=== PATIENT | female | born 1985 | race Caucasian/White ===

== ENCOUNTER 2016-07-10 06:33 | Day surgery (SDC) | payer OTHER ==
[2016-07-09 11:41] LABS: CHLORIDE,CL 107 mmol/L (98-110); SODIUM,NA 140 mmol/L (136-146)
[~2016-07-10 06:33] MED LIST: Bupivacaine 0.25% 10 ML SDV ONE
--- NOTE | 2016-07-10 07:01 | PCM.PREANE ---
Preanesthetic Assessment - Anesthesia/Transfusion/Family Hx Anesthesia History: Prior Anesthesia Without Reaction Family History of Anesthesia Reaction: No Transfusion History: No Prior Transfusion(s) Intubation History: Unknown - Review of Systems General: No Symptoms Pulmonary: No Symptoms Cardiovascular: No Symptoms Gastrointestinal: No symptoms Neurological: No Symptoms Other: Reports: None - Physical Assessment O2 Sat by Pulse Oximetry: 10 Respiratory Rate: 16 Vital Signs: Last Vital Signs Temp 36.3 C 07/10/16 06:43 Pulse 63 07/10/16 06:43 Resp 16 07/10/16 06:43 BP 106/76 07/10/16 06:43 Pulse Ox 10 L 07/10/16 06:43 Height: 1.57 m Weight: 72.575 kg ASA Class: 2 Mental Status: Alert & Oriented x3 Airway Class: Mallampati = 2 Thyro-Mental Finger Breadths: 3 Mouth Opening Finger Breadths: 2 ROM/Head Extension: Full Lungs: Clear to auscultation, Normal respiratory effort Cardiovascular: Regular Rate, Regular Rhythm - Lab Values: Laboratory Last Values WBC 4.40 K/uL (4.0-11.0) 07/09/16 11:12 RBC 4.45 M/uL (4.30-5.90) 07/09/16 11:12 Hgb 13.4 g/dL (12.0-16.0) 07/09/16 11:12 Hct 39.3 % (36.0-46.0) 07/09/16 11:12 MCV 88.3 fL (80.0-98.0) 07/09/16 11:12 MCH 30.1 pg (27.0-32.0) 07/09/16 11:12 MCHC 34.1 g/dL (31.0-37.0) 07/09/16 11:12 RDW Std Deviation 42.2 fl (28.0-62.0) 07/09/16 11:12 RDW Coeff of [place]el[place] 13 % (11.0-15.0) 07/09/16 11:12 Plt Count 164 K/uL (150-400) 07/09/16 11:12 MPV 9.90 fL (7.40-12.00) 07/09/16 11:12 Nucleated RBC % 0.0 /100WBC 07/09/16 11:12 Nucleated RBCs # 0 K/uL 07/09/16 11:12 Sodium 140 mmol/L (136-146) 07/09/16 11:12 Potassium 4.2 mmol/L (3.5-5.1) 07/09/16 11:12 Chloride 107 mmol/L (98-110) 07/09/16 11:12 Carbon Dioxide 25 mmol/L (21-31) 07/09/16 11:12 BUN 13 mg/dL (6.0-23.0) 07/09/16 11:12 Creatinine 0.9 mg/dL (0.6-1.5) 07/09/16 11:12 Est Cr Clr Drug Dosing 70.98 mL/min 07/09/16 11:12 Estimated GFR (MDRD) > 60.0 ml/min 07/09/16 11:12 Glucose 70 mg/dL (60-110) 07/09/16 11:12 Calcium 9.3 mg/dL (8.8-10.8) 07/09/16 11:12 HCG, Qual NEGATIVE (NEG) 07/09/16 11:12 Blood Type A POSITIVE 07/09/16 11:12 Antibody Screen NEGATIVE 07/09/16 11:12 - Allergies Allergies/Adverse Reactions: Allergies Allergy/AdvReac Type Severity Reaction Status Date / Time hydrocodone bitartrate Allergy "anger Verified 01/15/16 10:52 [From Vicodin] rages" latex Allergy welts/reddn Verified 07/06/16 08:54 ess - Blood Blood Available: No - Anesthesia Plan Pre-Op Medication Ordered: None - Acknowledgements Anesthesia Type Planned: General Anesthesia Pt an Appropriate Candidate for the Planned Anesthesia: Yes Alternatives and Risks of Anesthesia Discussed w Pt/Guardian: Yes Pt/Guardian Understands and Agrees with Anesthesia Plan: Yes PreAnesthesia Questionnaire HEENT History: Reports: Other (See Below) Other HEENT History: wears contacts/glasses Respiratory History: Reports: Other (See Below) Other Respiratory History: hx of walking pneumonia last year 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: , Other (See Below) Other OB/BYN History: ablation Endocrine/Metabolic History: Reports: Obesity/BMI 30+ Hematologic History: Reports: Other (See Below) Other Hematologic History: states she bleeds easily - Past Surgical History Head Surgeries/Procedures: Reports: None Respiratory Surgical History: Reports: None Female Surgical History: Reports: Breast Implant, Endometrial Ablation, Salpingo-Oophorectomy Other Female Surgeries/Procedures: hx breast augmentation, ESSURE, operative laparoscopy with rt salpingectomy, endometrial ablation - SUBSTANCE USE Smoking Status *Q: Never Smoker Second Hand Smoke Exposure: No Days Per Week of Alcohol Use: 6 Number of Drinks Per Day: 1 Total Drinks Per Week: 6 Recreational Drug Use History: No - HOME MEDS Home Medications: Home Meds . [No Known Home Meds] 01/15/16 [History] - CURRENT (IN HOUSE) MEDS Current Meds: Current Medications Discontinued Medications Bupivacaine HCl (Sensorcaine-Mpf 0.25%) Confirm Administered Dose 20 ml .ROUTE .STK-MED ONE Stop: 07/07/16 14:27
[2016-07-10] MEDS ORDERED: Neostigmine Methylsulfate 1 MG/ML 5 ML Syringe ONE (07:04)
[2016-07-10] MEDS ORDERED: Sodium Chloride 0.9% 20 ML ONE ×2 (07:04→08:06)
[2016-07-10] MEDS ORDERED: Ondansetron 4 MG/2 ML SDV ONE (07:04)
[2016-07-10] MEDS ORDERED: Lidocaine 2% 5 ML SDV ONE (07:04)
[2016-07-10] MEDS ORDERED: fentaNYL 250 MCG/5 ML SDV ONE ×2 (07:05→08:35)
[2016-07-10] MEDS ORDERED: Propofol 200 MG/20 ML SDV ONE ×2 (07:05→11:02)
[2016-07-10] MEDS ORDERED: Midazolam 1 MG/ML 2 ML SDV ONE (07:05)
[2016-07-10] MEDS ORDERED: Fluorescein 5 ML Vial ONE (07:18)
[2016-07-10] MEDS ORDERED: Methylene Blue 50 MG/10 ML Ampule IV ONE (07:19)
[2016-07-10] MEDS ORDERED: Phenylephrine/Normal Saline 100 MCG/ML 10 ML Syringe ONE (08:00)
[2016-07-10] MEDS ORDERED: ePHEDrine 50 MG/ML SDV ONE (08:03)
[2016-07-10] MEDS ORDERED: ceFAZolin 1 GM Vial ONE (08:06)
[2016-07-10] MEDS ORDERED: Furosemide 40 MG/4 ML VIAL ONE (08:12)
[2016-07-10] MEDS ORDERED: Sodium Chloride 0.9% 2.5 ML Syringe FLUSH PRN (08:44)
[2016-07-10] MEDS ORDERED: Sodium Chloride 0.9% 10 ML Syringe FLUSH PRN (08:44)
[2016-07-10] MEDS ORDERED: Lactated Ringers 1,000 ML IV SCH (08:45)
[2016-07-10] MEDS ORDERED: fentaNYL 100 MCG/2 ML SDV IVPUSH PRN ×2 (08:46→10:18)
[2016-07-10] MEDS ORDERED: Ondansetron 4 MG/2 ML SDV IVPUSH PRN (10:18)
[2016-07-10] MEDS ORDERED: Promethazine 25 MG/ML SDV IM PRN (10:18)
--- NOTE | 2016-07-10 10:18 | PCM.OPNOTE ---
- General Post-Op/Procedure Note Date of Surgery/Procedure: 07/10/16 Operative Procedure(s): laparoscopically assisted vaginal hysterectomy with right salpingectomy Findings: uterus normal size, dark implant on right side of uterus at fundus, no other areas suspicious for endometriosis. Bilateral ovaries appear normal. Upon cystoscopy, there was copious flow of bright green urine from bilateral ureteral orifices and no evidence of trauma to the bladder mucosa. Pre Op Diagnosis: menorrhagia Post-Op Diagnosis: Same Anesthesia Technique: General ET tube Primary Surgeon: Krupa Toribio Secondary Surgeon: Meenu Garcia Anesthesia Provider: Betito Lee Independent Crop Consultant: Donnell Freitas Pathology: uterus, left tube Fluid Replacement, Intraop: 3,000 Output, Urine Amount: 800 EBL in mLs: 300 Complications: None Known Condition: Good
--- NOTE | 2016-07-10 10:56 | PCM.POSTAN ---
POST ANESTHESIA ASSESSMENT - MENTAL STATUS Mental Status: alert, oriented - RESPIRATORY Respiratory Status: respiratory rate WNL, airway patent, O2 saturation stable - CARDIOVASCULAR CV Status: pulse rate WNL, blood pressure stable - GASTROINTESTINAL GI Status: no symptoms - PAIN Pain Score: 2 - POST OP HYDRATION Hydration Status: adequate & stable - OBSERVATIONS Free Text/Narrative:: no anesthesia problems
[2016-07-10] MEDS: Acetaminophen/oxyCODONE 325-5 MG Tab PO PRN ×3 (13:31→23:19)
--- NOTE | 2016-07-10 14:44 | OR ---
SURGEON: Krupa Toribio M.D. DATE OF PROCEDURE: 07/10/2016 PREOPERATIVE DIAGNOSES: Menorrhagia and pelvic pain. POSTOPERATIVE DIAGNOSES: Menorrhagia and pelvic pain. PROCEDURE: Laparoscopically-assisted vaginal hysterectomy with left salpingectomy. LUMBER PILER: Meenu Garcia MD. ANESTHESIA: General endotracheal. FLUIDS: 3000 mL crystalloid. URINE OUTPUT: 800 mL. ESTIMATED BLOOD LOSS: 300 mL. FINDINGS: The uterus had a dark implant at the right fundal area which appeared consistent with endometriosis, there were no other areas of endometriosis identified, however bilateral ovaries appeared normal. The left tube appeared normal. Upon cystoscopy, there was copious flow of bright green dye after fluorescein had been given from bilateral ureteral orifices. There was also no evidence of any trauma to the bladder mucosa. COMPLICATIONS: None known. DISPOSITION: Stable to recovery. BRIEF HISTORY: This is a 30-year-old female, who presents for hysterectomy. She has had heavy irregular bleeding as well as right-sided pelvic pain. She has had an ablation and Essure procedure in 2012. Her periods were very light. The dyspareunia and pelvic pain which she had noted prior to the ablation was much improved until November of 2015 which was the 1st time she noticed a normal-appearing. Following that, her periods were every 21 days until February when she had three periods and then had bleeding the entire month of March. Since then, her periods have become very heavy and irregular with associated pelvic pain and cramping. The pelvic pain that she has noticed is in the right lower quadrant. This is the same pain that she has experienced prior to her ablation. Prior to the ablation in 2012, she did have a right salpingectomy with removal of the Essure implant to see if this was the cause of the pain. This did not resolve her pain. However, the ablation and resolution of her periods did resolve her pain. Therefore, she was evaluated with an ultrasound which was normal without lesions or polyps and she also had laboratory studies including a normal TSH, normal Pap smear. Vitamin B12 level was relatively low, and she has been receiving B12 supplements. Discussion of options included IUD, repeat ablation, medical management, or hysterectomy given the fact that she has had recurrence of the right lower quadrant pain despite removal of the tube, removal of the Essure, and when her periods resume, she had recurrence of the pain. She desires to proceed with definitive treatment with hysterectomy. The approach will be a laparoscopically-assisted vaginal hysterectomy with left salpingectomy and cystoscopy, removal of her remaining tube is for risk reduction for ovarian cancer as well as removal of the Essure implant. Surgical risks including bleeding, infection, injury to bowel, bladder, blood vessels, ureters, other organs, risk of thromboembolic event, risk of anesthesia were discussed. Also discussion was held regarding change in sexual function. Understanding all these risks, she does desire to proceed. DESCRIPTION OF PROCEDURE: With the patient in dorsal lithotomy position, under adequate general endotracheal anesthesia, the abdomen was prepped with chlorhexidine and the vaginal and perineal areas were prepped with Betadine and draped in the usual fashion for laparoscopically-assisted vaginal surgery. Gallegos catheter had been placed and backfilled with 30 mL of dilute methylene blue. An appropriate time- out was held and bimanual examination revealed an 8 weeks' size mobile uterus in mid position. The speculum was placed in the vagina. The cervix was grasped with an Allis clamp and the ZUMI uterine manipulator was placed to the uterine fundus, it was sounded to 7 cm. This being completed, the speculum was removed. Paste Mixer's gloves were changed. Attention was turned abdominally. A 5 mm incision was made cephalad from the umbilicus at the prior scar site and the abdomen was elevated. Veress needle was inserted. Opening pressure was 4 mmHg. CO2 was insufflated to develop an adequate pneumoperitoneum of 13 mmHg. The 5 mm port was placed. The camera was placed. There was no evidence of any trauma beneath the port placement site. The uterus was elevated, bilateral ureters were identified and were deep within the pelvis. Two additional ports were placed under direct visualization, 2 cm medial and cephalad from the anterior superior iliac spine on the right and the left. These were 5 mm ports as well. The uterus was elevated. The left tube was grasped and using the LigaSure, was from the ovary and the mesosalpinx was cut and cauterized approximately to the level of the uterine cornu with retraction of the uterus to the right. The left broad ligament was then further cut and ligated below the level of the round ligament. The anterior leaf of the broad ligament was then further opened as was the posterior leaf and the LigaSure was used to doubly cauterize and cut the uterine vessels. Due to the position of the uterus, it was difficult to see the anterior cul-de-sac, therefore I did not proceed with entering the anterior cul-de-sac from above. I did proceed with doubly clamping and doubly ligating and cutting the utero-ovarian ligament on the right carrying down to the round ligament opening the anterior and posterior leaf of the broad ligament and doubly cauterizing and cutting the uterine vessels. This being completed, attention was then turned vaginally. The Gallegos catheter was released. A weighted speculum was placed posteriorly and a vaginal retractor was placed anteriorly. The cervix was grasped with a Vilma tenaculum and circumscribed using electrocautery. The posterior cul-de-sac was entered sharply. A Ondina-Auvard speculum was placed posteriorly. The anterior cul-de- sac was entered sharply using Metzenbaum scissors and the vaginal retractor was placed anteriorly. The uterosacral ligaments were then clamped with a Higinio clamps, cut, and ligated using a Higinio ligature of 0 Polysorb. These were retained. An additional pedicle was taken on the right for the lower portion of the broad ligament which was then clamped, cut, and ligated using a Higinio ligature of 2-0 Polysorb. The uterus and the portion of the left tube was then delivered vaginally. The pedicles were inspected and they were hemostatic. The retained uterosacral ligatures were ligated to the vaginal apices bilaterally and the vaginal cuff was closed with a running locked suture of 0 Polysorb. The Gallegos catheter was removed. IV fluorescein and Lasix were given. There was copious flow of bright green urine upon cystoscopy with excellent visualization of the bladder. There was no evidence of any trauma to the bladder mucosa. Therefore, a new Gallegos catheter was placed. The speculum was again placed in the vagina and the cuff was hemostatic. Attention was then turned abdominally. The abdomen was re-insufflated after threshing operator's gloves were changed. The pelvis was carefully inspected. Initially, there were some small areas of bleeding that were cauterized, however after and during the inspection, there was a sudden onset of bleeding immediately at the anterior cuff and this was cauterized, however, I was unable to get complete hemostasis. Therefore, I returned to a vaginal approach to grasp the anterior cuff with an Allis clamp and placed a single [id number] suture in the tissue with good hemostasis. Careful inspection at 5 mmHg revealed several other areas of small amount of bleeding that were cauterized. Endo Avitene was then placed at the anterior cuff area. With the cuff and the pelvis being completely hemostatic, inspection under high and low pressure was performed. There was no further bleeding and therefore, the abdomen was desufflated. The ports were removed. The skin was closed with subcuticular suture of 3-0 Caprosyn and the vagina was again inspected and there was no evidence of any bleeding from the vaginal cuff. Therefore, all the instruments removed from the vagina. Final sponge, needle, and instrument counts were reported as correct. There were no known complications. The patient was transferred to recovery in good condition. VIDHYA / MIKE /[id number]
--- NOTE | 2016-07-10 17:45 | PCM.SN ---
- Free Text/Narrative Note: POD0 after LAVH with left salpingectomy. Nausea is resolved after Zofran and phenergan, taking oral pain pills and tolerating diet. Catheter still in place. Reviewed operative findings, Catheter out tonight and anticipate home in am. Would like B12 injection (home med) prior to discharge.
[2016-07-11 04:41] LABS: CHLORIDE,CL 108 mmol/L (98-110); SODIUM,NA 140 mmol/L (136-146)
[2016-07-11] MEDS: Acetaminophen/oxyCODONE 325-5 MG Tab PO PRN (06:50)
[2016-07-11] MEDS ORDERED: Cyanocobalamin (Vitamin B12) 1,000 MCG/ML SDV IM ONE (07:00)
[2016-07-11 08:04] VITALS: BP 104/63
--- NOTE | 2016-07-11 08:16 | PCM.SURGPN ---
- General Info Date of Service: 07/11/16 POD#: 1 Post-Op Diagnosis: menorrhgia, pelvic pain, possible endometriosis Admission Diagnosis/Problem: Menorrhagia with irregular cycle Functional Status: Reports: pain controlled, tolerating diet, ambulating, urinating - Review of Systems General: Reports: No Symptoms HEENT: Reports: no symptoms Pulmonary: Reports: no symptoms Cardiovascular: Reports: No Symptoms Gastrointestinal: Reports: No symptoms Genitourinary: Reports: no symptoms Musculoskeletal: Reports: no symptoms Skin: Reports: no symptoms Neurological: Reports: No Symptoms Psychiatric: Reports: no symptoms - Patient Data Vitals - most recent: Last Vital Signs Temp 36.7 C 07/11/16 04:00 Pulse 81 07/11/16 04:00 Resp 14 07/11/16 04:00 BP 89/55 L 07/11/16 04:00 Pulse Ox 94 L 07/11/16 04:00 Weight - most recent: 72.575 kg I&O - last 24 hours: Intake & Output 07/10/16 07/11/16 07/11/16 22:59 06:59 14:59 Intake Total 1250 Output Total 3350 Balance -2100 Lab Results last 24 hrs: Laboratory Results - last 24 hr 07/11/16 07/11/16 Range/Units 04:11 04:11 WBC 6.81 (4.0-11.0) K/uL RBC 3.64 L (4.30-5.90) M/uL Hgb 10.7 L (12.0-16.0) g/dL Hct 32.9 L (36.0-46.0) % MCV 90.4 (80.0-98.0) fL MCH 29.4 (27.0-32.0) pg MCHC 32.5 (31.0-37.0) g/dL RDW Std Deviation 44.8 (28.0-62.0) fl RDW Coeff of Carmelita 14 (11.0-15.0) % Plt Count 135 L (150-400) K/uL MPV 9.70 (7.40-12.00) fL Neut % (Auto) 61.3 (48.0-80.0) % Lymph % (Auto) 30.0 (16.0-40.0) % [place] % (Auto) 6.5 (0.0-15.0) % Eos % (Auto) 2.2 (0.0-7.0) % Baso % (Auto) 0.0 (0.0-1.5) % Neut # (Auto) 4.2 (1.4-5.7) K/uL Lymph # (Auto) 2.0 (0.6-2.4) K/uL [place] # (Auto) 0.4 (0.0-0.8) K/uL Eos # (Auto) 0.2 (0.0-0.7) K/uL Baso # (Auto) 0.0 (0.0-0.1) K/uL Nucleated RBC % 0.0 /100WBC Nucleated RBCs # 0 K/uL Sodium 140 (136-146) mmol/L Potassium 3.8 (3.5-5.1) mmol/L Chloride 108 (98-110) mmol/L Carbon Dioxide 25 (21-31) mmol/L BUN 6 (6.0-23.0) mg/dL Creatinine 0.8 (0.6-1.5) mg/dL Est Cr Clr Drug Dosing 79.85 mL/min Estimated GFR (MDRD) > 60.0 ml/min Glucose 93 (60-110) mg/dL Calcium 8.2 L (8.8-10.8) mg/dL Med Orders - Current: Current Medications Ondansetron HCl (Zofran) 4 mg IVPUSH Q6H PRN PRN Reason: Nausea/Vomiting Last Admin: 07/10/16 13:32 Dose: 4 mg Oxycodone/Acetaminophen (Percocet 325-5 Mg) 1 - 2 tab PO Q4H PRN PRN Reason: Pain (moderate 4-6) Last Admin: 07/11/16 06:50 Dose: 2 tab Promethazine HCl (Phenergan) 25 mg IM Q6H PRN PRN Reason: Nausea/Vomiting Last Admin: 07/10/16 14:34 Dose: 25 mg Sodium Chloride (Saline Flush) 10 ml FLUSH ASDIRECTED PRN PRN Reason: Keep Vein Open Sodium Chloride (Saline Flush) 2.5 ml FLUSH ASDIRECTED PRN PRN Reason: Keep Vein Open Discontinued Medications Bupivacaine HCl (Sensorcaine-Mpf 0.25%) Confirm Administered Dose 20 ml .ROUTE .STK-MED ONE Stop: 07/07/16 14:27 Cefazolin Sodium (Ancef) Confirm Administered Dose 2 gm .ROUTE .STK-MED ONE Stop: 07/10/16 08:07 Cyanocobalamin (Vitamin B12) 1,000 mcg IM ONETIME ONE Stop: 07/11/16 07:01 Last Admin: 07/11/16 07:22 Dose: 1,000 mcg Ephedrine Sulfate (Ephedrine Sulfate) Confirm Administered Dose 50 mg .ROUTE .STK-MED ONE Stop: 07/10/16 08:04 Fentanyl (Sublimaze) Confirm Administered Dose 250 mcg .ROUTE .STK-MED ONE Stop: 07/10/16 07:06 Fentanyl (Sublimaze) Confirm Administered Dose 250 mcg .ROUTE .ST-MED ONE Stop: 07/10/16 08:36 Fentanyl (Sublimaze) 50 mcg IVPUSH Q5M PRN PRN Reason: Pain (severe 7-10) Stop: 07/10/16 12:00 Last Admin: 07/10/16 10:57 Dose: 50 mcg Fentanyl (Sublimaze) 10 - 20 mcg IVPUSH Q1H PRN PRN Reason: Pain Stop: 07/10/16 17:19 Fluorescein Sodium (Ak-Fluor) Confirm Administered Dose 5 ml .ROUTE .ST-MED ONE Stop: 07/10/16 07:19 Furosemide (Lasix) Confirm Administered Dose 40 mg .ROUTE .STK-MED ONE Stop: 07/10/16 08:13 Glycopyrrolate () Confirm Administered Dose 1 mg .ROUTE .STK-MED ONE Stop: 07/10/16 07:05 Sodium Chloride (Normal Saline) Confirm Administered Dose 20 mls @ as directed .ROUTE .STK-MED ONE Stop: 07/10/16 07:05 Sodium Chloride (Normal Saline) Confirm Administered Dose 20 mls @ as directed .ROUTE .STK-MED ONE Stop: 07/10/16 08:07 Lactated Ringer's (Ringers, Lactated) 1,000 mls @ 125 mls/hr IV ASDIRECTED KAYLA Lidocaine (Xylocaine-Mpf 2%) Confirm Administered Dose 5 ml .ROUTE .STK-MED ONE Stop: 07/10/16 07:05 Methylene Blue (Provayblue) Confirm Administered Dose 50 mg IV .STK-MED ONE Stop: 07/10/16 07:20 Midazolam HCl (Versed 1 Mg/Ml) Confirm Administered Dose 2 mg .ROUTE .STK-MED ONE Stop: 07/10/16 07:06 Neostigmine Methylsulfate (Neostigmine) Confirm Administered Dose 5 mg .ROUTE .STK-MED ONE Stop: 07/10/16 07:05 Ondansetron HCl (Zofran) Confirm Administered Dose 4 mg .ROUTE .STK-MED ONE Stop: 07/10/16 07:05 Phenylephrine HCl (Phenylephrine In Ns 100 Mcg/Ml) Confirm Administered Dose 1 mg .ROUTE .STK-MED ONE Stop: 07/10/16 08:01 Propofol (Diprivan 20 Ml) Confirm Administered Dose 200 mg .ROUTE .STK-MED ONE Stop: 07/10/16 07:06 Propofol (Diprivan 20 Ml) Confirm Administered Dose 200 mg .ROUTE .STK-MED ONE Stop: 07/10/16 11:03 Vecuronium [place] (Vecuronium) Confirm Administered Dose 10 mg .ROUTE .STK-MED ONE Stop: 07/10/16 07:05 - Exam Wound/Incisions: dressing dry and intact General: alert, oriented Lungs: Clear to auscultation, Normal respiratory effort Cardiovascular: Regular Rate, Regular Rhythm Abdomen: bowel sounds present, soft, no tenderness, no distension Extremities: no edema Skin: warm, dry, intact Neurological: no new focal deficit Psy/Mental Status: alert, normal affect, normal mood - Problem List & Annotations (1) Menorrhagia with irregular cycle SNOMED Code(s): 480619020 Code(s): N92.1 - EXCESSIVE AND FREQUENT MENSTRUATION WITH IRREGULAR CYCLE Status: Acute Current Visit: Yes (2) Pelvic pain SNOMED Code(s): 04260299 Code(s): R10.2 - PELVIC AND PERINEAL PAIN Status: Acute Current Visit: Yes - Problem List Review Problem List Initiated/Reviewed/Updated: Yes - My Orders Last 24 Hours: Active Orders 24 hr Category Date Time Status Patient Status [ADT] Routine ADT 07/10/16 10:18 Active Antiembolic Devices [RC] PER UNIT ROUTINE Care 07/10/16 10:19 Active Bradycardia-Neuroaxis [employer] [RC] ROUTINE Care 07/10/16 08:46 Active Hypertension-Neuroaxis [employer] [RC] ROUTINE Care 07/10/16 08:46 Active Hypotension-Neuroaxis [employer] [RC] ROUTINE Care 07/10/16 08:46 Active Notify Provider Intake and Out [RC] ASDIRECTED Care 07/10/16 10:18 Active Notify Provider Vital Signs [RC] ASDIRECTED Care 07/10/16 10:18 Active Oxygen Therapy [RC] ASDIRECTED Care 07/10/16 10:23 Active RT Incentive Spirometry [RC] Q2HWA Care 07/10/16 10:18 Active Ready for Discharge [RC] PER UNIT ROUTINE Care 07/11/16 08:00 Ordered Up With Assistance [RC] PER UNIT ROUTINE Care 07/10/16 10:18 Active Up ad Jaymie [RC] PER UNIT ROUTINE Care 07/10/16 10:18 Active Urinary Catheter Removal [RC] Per Unit Routine Care 07/10/16 10:18 Active Vital Signs [RC] PER UNIT ROUTINE Care 07/10/16 10:18 Active Regular Diet [DIET] Diet 07/10/16 Dinner Active Acetaminophen/oxyCODONE [Percocet 325-5 MG] Med 07/10/16 10:18 Active 1 - 2 tab PO Q4H PRN Ondansetron [Zofran] Med 07/10/16 10:18 Active 4 mg IVPUSH Q6H PRN Promethazine [Phenergan] Med 07/10/16 10:18 Active 25 mg IM Q6H PRN Sodium Chloride 0.9% [Saline Flush] Med 07/10/16 08:44 Active 10 ml FLUSH ASDIRECTED PRN Sodium Chloride 0.9% [Saline Flush] Med 07/10/16 08:44 Active 2.5 ml FLUSH ASDIRECTED PRN Heat Therapy [OM.PC] Routine Oth 07/10/16 10:18 Ordered Medication Administration Instruction [OM.PC] Routine Oth 07/10/16 08:44 Ordered Peripheral IV Discontinue [OM.PC] Routine Oth 07/10/16 10:18 Ordered Peripheral IV Insertion Adult [OM.PC] Routine Oth 07/10/16 08:44 Ordered Sequential Compression Device [OM.PC] Per Unit Routine Oth 07/10/16 10:18 Ordered Resuscitation Status Routine Resus Stat 07/10/16 10:18 Ordered Medication Orders Ondansetron HCl (Zofran) 4 mg IVPUSH Q6H PRN PRN Reason: Nausea/Vomiting Last Admin: 07/10/16 13:32 Dose: 4 mg Oxycodone/Acetaminophen (Percocet 325-5 Mg) 1 - 2 tab PO Q4H PRN PRN Reason: Pain (moderate 4-6) Last Admin: 07/11/16 06:50 Dose: 2 tab Admin: 07/10/16 23:19 Dose: 2 tab Admin: 07/10/16 18:35 Dose: 2 tab Admin: 07/10/16 13:31 Dose: 2 tab Promethazine HCl (Phenergan) 25 mg IM Q6H PRN PRN Reason: Nausea/Vomiting Last Admin: 07/10/16 14:34 Dose: 25 mg Sodium Chloride (Saline Flush) 10 ml FLUSH ASDIRECTED PRN PRN Reason: Keep Vein Open Sodium Chloride (Saline Flush) 2.5 ml FLUSH ASDIRECTED PRN PRN Reason: Keep Vein Open - Assessment Assessment (Free Text/Narrative):: POD#1 after LAVH/left salpingectomy. Patient is stable, pain is well controlled , nighttime BP was low when awakened, ambulating to bathroom only today. Tolerating diet, nausea is resolved - Plan Plan (Free Text/Narrative):: Repeat BP prior to discharge, ambulate this am, if no dizziness, will dismiss to home. Discharge instructions reviewed.
== END 2016-07-11 11:05 | disposition home or self-care (01) ==
LOC: MW.SDS 06:33 → MW.MS 11:24 → MW.SDS 07-11 11:05
PROVIDERS: ATTEND Obstetrics & Gynecology
PROC: 0UTC7ZZ Resection of Cervix, Via Natural or Artificial Opening (ICD-10-PCS; principal; 2016-07-10)
PROC: 0UT9FZZ Resection of Uterus, Via Natural or Artificial Opening With Percutaneous Endoscopic Assistance (ICD-10-PCS; principal; 2016-07-10)
PROC: 0UT6FZZ Resection of Left Fallopian Tube, Via Natural or Artificial Opening With Percutaneous Endoscopic Assistance (ICD-10-PCS; principal; 2016-07-10)
DX: N80.0 Endometriosis of uterus (principal); N88.8 Other specified noninflammatory disorders of cervix uteri; E66.9 Obesity, unspecified; Z90.79 Acquired absence of other genital organ(s); Z88.5 Allergy status to narcotic agent; Z88.6 Allergy status to analgesic agent; Z91.040 Latex allergy status; Z98.890 Other specified postprocedural states; Z68.30 Body mass index [BMI] 30.0-30.9, adult
CPT/HCPCS: 36415; 58552; 80048; 84703; 85025; 85027; 86850; 86900; 86901; A9270; J0690; J1940; J2250; J2405; J2550; J3010; J3420; Q9968; 00944; 88307; J2704

== ENCOUNTER 2017-01-23 19:12 | Emergency (ER) | payer OTHER ==
[2017-01-23] MEDS ORDERED: Lidocaine 1% 20 ML MDV INJECT ONE (19:38)
[2017-01-23] MEDS ORDERED: Acetaminophen/HYDROcodone 325-5 MG Tab PO ONE (19:50)
--- NOTE | 2017-01-23 19:53 | EDM.PDOC ---
ED HPI GENERAL MEDICAL PROBLEM - General Chief Complaint: Skin Complaint Stated Complaint: UNK Time Seen by Provider: 01/23/17 19:20 Source of Information: Reports: Patient History Limitations: Reports: No Limitations - History of Present Illness INITIAL COMMENTS - FREE TEXT/NARRATIVE: HISTORY AND PHYSICAL: History of present illness: Patient is a 31-year-old female who presents to the emergency room with complaints of an abscess to the left gluteus. States she noticed a small area of irritation, redness and swelling approximately 6 days ago which has progressively gotten larger. She was seen at the walk-in clinic yesterday and given a shot of Rocephin IM and placed on Bactrim DS. She states within several hours after receiving the IM injection she had increased swelling and pain. She denies any fever, chills or shortness of breath or chest pain. Denies any abdominal pain, nausea, vomiting or diarrhea. Review of systems: As per history of present illness and below otherwise all systems reviewed and negative. Past medical history: As per history of present illness and as reviewed below otherwise noncontributory. Surgical history: As per history of present illness and as reviewed below otherwise noncontributory. Social history: No reported history of drug or alcohol abuse. Family history: As per history of present illness and as reviewed below otherwise noncontributory. Physical exam: Enteral: Well-developed and well-nourished 31-year-old female. Alert and oriented. Appears in no acute distress. Nontoxic-appearing. HEENT: Atraumatic, normocephalic, pupils reactive, negative for conjunctival pallor or scleral icterus, mucous membranes moist, throat clear, neck supple, nontender, trachea midline. Lungs: Clear to auscultation, breath sounds equal bilaterally, chest nontender. Heart: S1S2, regular, negative for clicks, rubs, or JVD. Abdomen: Soft, nondistended, nontender. Negative for masses or hepatosplenomegaly. Negative for costovertebral tenderness. Pelvis: Stable nontender. Genitourinary: Deferred. Rectal: Deferred. Extremities: Atraumatic, negative for cords or calf pain. Neurovascular unremarkable. Skin: Abscess noted to the left mid glute, ensuring approximately 5 cm in diameter with a centralized area of redness/head. Able to express a small amount of drainage from the center, fluctuant. The surrounding area is firm to touch with tenderness. Neuro: Awake, alert, oriented. Cranial nerves II through XII unremarkable. Cerebellum unremarkable. Motor and sensory unremarkable throughout. Exam nonfocal. Diagnostics: Wound Culture Therapeutics: Consent was obtained. 1% lidocaine is used to anesthetize the area, approx 4cc was used. Moderate amount of purlunet drainage was expressed from site. Irrigated with 30 cc of wound wash. 1/4 inch iodofoam gauze was used to pack the wound. Nonstick dressing was applied. Education was completed. Impression: Abscess Plan: 1. Please continue to take your Bactrim DS as prescribed. A packing was placed in the wound, please try to avoid pulling or tugging on this. 2. You may take the prescribed Hampton one tablet every 4-6 hours as needed. 3. Please follow-up with your primary caregiver in the next 1-2 days. If not I would like you to return to the emergency room in 48 hours for reevaluation of the wound. You may need it repacked. 4. Return to the ED as needed and as discussed. Definitive disposition and diagnosis as appropriate pending reevaluation and review of above. Duration: Day(s): Location: Reports: Other (Left glute) buttocks area Pain Score (Numeric/FACES): 10 - Related Data Allergies Allergy/AdvReac Type Severity Reaction Status Date / Time hydrocodone bitartrate Allergy "anger Verified 01/23/17 19:22 [From Vicodin] rages" latex Allergy welts/reddn Verified 01/23/17 19:22 ess Home Meds: Home Meds Mupirocin Oint [Bactroban Oint] 1 applic TOP TID 01/23/17 [History] Sulfamethoxazole/Trimethoprim [Sulfamethoxazole-Tmp Ss Tablet] 1 tab PO BID [History] Past Medical History HEENT History: Reports: Other (See Below) Other HEENT History: wears contacts/glasses Cardiovascular History: Reports: None Respiratory History: Reports: Other (See Below) Other Respiratory History: hx of walking pneumonia last year Gastrointestinal History: Reports: None Genitourinary History: Reports: Acute Renal Failure 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 OB/BYN History: ablation Musculoskeletal History: Reports: None Neurological History: Reports: None Psychiatric History: Reports: None Endocrine/Metabolic History: Reports: Obesity/BMI 30+ Hematologic History: Reports: None Other Hematologic History: states she bleeds easily Immunologic History: Reports: None Oncologic (Cancer) History: Reports: None Dermatologic History: Reports: None - Infectious Disease History Infectious Disease History: Reports: Chicken Pox - Past Surgical History Head Surgeries/Procedures: Reports: None Respiratory Surgical History: Reports: None Female Surgical History: Reports: Breast Implant, Endometrial Ablation, Salpingo-Oophorectomy Other Female Surgeries/Procedures: hx breast augmentation, ESSURE, operative laparoscopy with rt salpingectomy, endometrial ablation Social & Family History - Family History Family Medical History: Noncontributory - Tobacco Use Smoking Status *Q: Never Smoker Second Hand Smoke Exposure: No - Caffeine Use Caffeine Use: Reports: Soda, Tea - Alcohol Use Days Per Week of Alcohol Use: 6 Number of Drinks Per Day: 1 Total Drinks Per Week: 6 - Recreational Drug Use Recreational Drug Use: No ED ROS GENERAL - Review of Systems Review Of Systems: ROS reveals no pertinent complaints other than HPI. (See dictation) ED EXAM, SKIN/RASH Exam: See Below (See dictation) Course - Vital Signs Last Recorded V/S: Last Vital Signs Temp 98.5 F 01/23/17 19:24 Pulse 105 H 01/23/17 19:24 Resp 18 01/23/17 19:24 BP 136/85 01/23/17 19:24 Pulse Ox 98 01/23/17 19:24 - Orders/Labs/Meds Orders: Active Orders 24 hr Category Date Time Status CULTURE WOUND [RM] Stat Lab 01/23/17 19:38 Uncollected Meds: Medications Discontinued Medications Generic Name Dose Route Start Last Admin Trade Name Waqar PRN Reason Stop Dose Admin Lidocaine HCl 20 ml 01/23/17 19:38 Xylocaine 1% INJECT 01/23/17 19:39 ONETIME ONE Departure - Departure Time of Disposition: 20:04 Disposition: Home, Self-Care 01 Clinical Impression: Abscess - Discharge Information Referrals: PCP,None [Primary Care Provider] - Additional Instructions: My general discharge The following information is given to patients seen in the emergency department who are being discharged to home. This information is to outline your options for follow-up care. We provide all patients seen in our emergency department with a follow-up referral. The need for follow-up, as well as the timing and circumstances, are variable depending upon the specifics of your emergency department visit. If you don't have a primary care physician on staff, we will provide you with a referral. We always advise you to contact your personal physician following an emergency department visit to inform them of the circumstance of the visit and for follow-up with them and/or the need for any referrals to a consulting specialist. The emergency department will also refer you to a specialist when appropriate. This referral assures that you have the opportunity for follow-up care with a specialist. All of these measure are taken in an effort to provide you with optimal care, which includes your follow-up. Under all circumstances we always encourage you to contact your private physician who remains a resource for coordinating your care. When calling for follow-up care, please make the office aware that this follow-up is from your recent emergency room visit. If for any reason you are refused follow-up, please contact the [facility] Emergency Department at and asked to speak to the emergency department charge nurse. [facility] [address] [place] [address] 1. Please continue to take your Bactrim DS as prescribed. A packing was placed in the wound, please try to avoid pulling or tugging on this. 2. You may take the prescribed Hampton one tablet every 4-6 hours as needed. 3. Please follow-up with your primary caregiver in the next 1-2 days. If not I would like you to return to the emergency room in 48 hours for reevaluation of the wound. You may need it repacked. 4. Return to the ED as needed and as discussed. - My Orders Last 24 Hours: My Active Orders 01/23/17 19:38 CULTURE WOUND [RM] Stat - Assessment/Plan Last 24 Hours: My Active Orders 01/23/17 19:38 CULTURE WOUND [RM] Stat
[2017-01-23 20:19] VITALS: BP 118/83
== END 2017-01-23 20:15 | disposition home or self-care (01) ==
LOC: MW.ED 19:12 → EEVIPCON 19:12 → MW.ED 20:15
DX: L02.31 Cutaneous abscess of buttock (principal); Z88.5 Allergy status to narcotic agent; Z91.040 Latex allergy status
CPT/HCPCS: 10061; 87070; 99283; A9270; 87077; 87186

== ENCOUNTER 2018-04-14 15:42 | Emergency (ER) | payer BC, OTHER ==
--- NOTE | 2018-04-14 15:44 | EDM.PDOC ---
ED HPI GENERAL MEDICAL PROBLEM - General Chief Complaint: Respiratory Problem Stated Complaint: TROUBLE BREATHING Time Seen by Provider: 04/14/18 15:43 Source of Information: Reports: Patient History Limitations: Reports: No Limitations - History of Present Illness INITIAL COMMENTS - FREE TEXT/NARRATIVE: HISTORY AND PHYSICAL: History of present illness: Patient is a 32-year-old female who presents to the emergency room with complaints of cough, body aches, sore throat 1 week. She states that she has had these symptoms since coming to [place] from [place]. She has not used any [id number] products to help alleviate her symptoms other than cough drops. She states these have not been helpful. She does have a history of pneumonia but no other lung related diseases or conditions. She denies any fever, chills, abdominal pain, nausea, vomiting, diarrhea or constipation. Denies any chance of . Has been eating and drinking appropriately. Review of systems: As per history of present illness and below otherwise all systems reviewed and negative. Past medical history: As per history of present illness and as reviewed below otherwise noncontributory. Surgical history: As per history of present illness and as reviewed below otherwise noncontributory. Social history: See social history for further information Family history: As per history of present illness and as reviewed below otherwise noncontributory. Physical exam: General: Well-developed and well-nourished 32-year-old female. Alert and oriented. Nontoxic appearing and in no acute distress. HEENT: Atraumatic, normocephalic, pupils equal and reactive bilaterally, negative for conjunctival pallor or scleral icterus, maxillary sinus tenderness bilaterally, mucous membranes moist, TMs normal bilaterally, mild erythema to the posterior oropharynx without exudate, neck supple, nontender, trachea midline. No drooling or trismus noted. No meningeal signs. No hot potato voice noted. Lungs: Clear to auscultation, breath sounds equal bilaterally, chest nontender. Dry nonproductive cough noted Heart: S1S2, regular rate and rhythm without overt murmur Abdomen: Soft, nondistended, nontender. Negative for masses or hepatosplenomegaly. Negative for costovertebral tenderness. Pelvis: Stable nontender. Genitourinary: Deferred. Rectal: Deferred. Skin: Intact, warm, dry. No lesions or rashes noted. Extremities: Atraumatic, negative for cords or calf pain. Neurovascular unremarkable. Neuro: Awake, alert, oriented. Cranial nerves II through XII unremarkable. Cerebellum unremarkable. Motor and sensory unremarkable throughout. Exam nonfocal. Notes: Influenza, strep and chest x-ray are benign.Supportive care measures were reviewed and discussed. Voices understanding and is agreeable to plan of care. Denies any further questions or concerns at this time. Diagnostics: Influenza, strep, chest x-ray Therapeutics: None Prescription: Augmentin Impression: Sinusitis Plan: 1. Please take medication as directed. Please use Tylenol and/or Ibuprofen as needed for pain and fever management. 2. Get plenty of Rest. Encourage fluids to prevent dehydration. 3. Please follow up with your primary care provider. Return to the ED as needed as discussed. Definitive disposition and diagnosis as appropriate pending reevaluation and review of above. Chest Pain Score (Numeric/FACES): 5 - Related Data Allergies Allergy/AdvReac Type Severity Reaction Status Date / Time hydrocodone bitartrate Allergy "anger Verified 04/14/18 15:54 [From Vicodin] rages" latex Allergy welts/reddn Verified 04/14/18 15:54 ess Home Meds: Home Meds . 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 History: ablation Musculoskeletal History: Reports: None Neurological History: Reports: None Psychiatric History: Reports: None Endocrine/Metabolic History: Reports: Obesity/BMI 30+ Hematologic History: Reports: None Other Hematologic History: states she bleeds easily Immunologic History: Reports: None Oncologic (Cancer) History: Reports: None Dermatologic History: Reports: None - Infectious Disease History Infectious Disease History: Reports: Chicken Pox - Past Surgical History Head Surgeries/Procedures: Reports: None Respiratory Surgical History: Reports: None Female Surgical History: Reports: Breast Implant, Endometrial Ablation, Salpingo-Oophorectomy Other Female Surgeries/Procedures: hx breast augmentation, ESSURE, operative laparoscopy with rt salpingectomy, endometrial ablation Social & Family History - Family History Family Medical History: Noncontributory - Caffeine Use Caffeine Use: Reports: Soda, Tea ED ROS GENERAL - Review of Systems Review Of Systems: ROS reveals no pertinent complaints other than HPI. ED EXAM, GENERAL - Physical Exam Exam: See Below (See dictation) Course - Vital Signs Last Recorded V/S: Last Vital Signs Temp 98.2 F 04/14/18 15:52 Pulse 74 04/14/18 15:52 Resp 18 04/14/18 15:52 BP 135/94 H 04/14/18 15:52 Pulse Ox 95 04/14/18 15:52 - Orders/Labs/Meds Orders: Active Orders 24 hr Category Date Time Status CULTURE STREP A CONFIRMATION [] Stat Lab 04/14/18 16:04 Results STREP SCRN A RAPID W CULT CONF [] Stat Lab 04/14/18 16:04 Results Departure - Departure Time of Disposition: 16:43 Disposition: Home, Self-Care 01 Clinical Impression: Sinusitis Qualifiers: Sinusitis location: maxillary Chronicity: acute Recurrence: non-recurrent Qualified Code(s): J01.00 - Acute maxillary sinusitis, unspecified - Discharge Information Instructions: Sinusitis, Adult, [id number] Forms: ED Department Discharge Additional Instructions: The following information is given to patients seen in the emergency department who are being discharged to home. This information is to outline your options for follow-up care. We provide all patients seen in our emergency department with a follow-up referral. The need for follow-up, as well as the timing and circumstances, are variable depending upon the specifics of your emergency department visit. If you don't have a primary care physician on staff, we will provide you with a referral. We always advise you to contact your personal physician following an emergency department visit to inform them of the circumstance of the visit and for follow-up with them and/or the need for any referrals to a consulting specialist. The emergency department will also refer you to a specialist when appropriate. This referral assures that you have the opportunity for follow-up care with a specialist. All of these measure are taken in an effort to provide you with optimal care, which includes your follow-up. Under all circumstances we always encourage you to contact your private physician who remains a resource for coordinating your care. When calling for follow-up care, please make the office aware that this follow-up is from your recent emergency room visit. If for any reason you are refused follow-up, please contact the [facility] Emergency Department at and asked to speak to the emergency department charge nurse. [facility] Primary [facility] [address] [place] [address] [facility] [address] [place] [id number] 1. Please take medication as directed. Please use Tylenol and/or Ibuprofen as needed for pain and fever management. 2. Get plenty of Rest. Encourage fluids to prevent dehydration. 3. Please follow up with your primary care provider. Return to the ED as needed as discussed. - My Orders Last 24 Hours: My Active Orders 04/14/18 16:04 CULTURE STREP A CONFIRMATION [] Stat STREP SCRN A RAPID W CULT CONF [] Stat - Assessment/Plan Last 24 Hours: My Active Orders 04/14/18 16:04 CULTURE STREP A CONFIRMATION [] Stat STREP SCRN A RAPID W CULT CONF [] Stat
[2018-04-14 15:54] VITALS: BP 135/94
--- NOTE | 2018-04-14 16:30 | CR ---
INDICATION: Cough. Pain. [id number]. TECHNIQUE: Two-view chest. FINDINGS: Heart and mediastinum are normal in size and configuration. Pulmonary vessels normal. Lungs are clear. No pleural fluid. Bony structures are unremarkable. IMPRESSION: Normal chest. Dictated by Abner Banuelos MD @ Apr 14 2018 4:27PM Signed by Dr. Abner Banuelos @ Apr 14 2018 4:28PM
== END 2018-04-14 17:00 | disposition home or self-care (01) ==
LOC: MW.ED 15:42
DX: J01.00 Acute maxillary sinusitis, unspecified (principal); Z88.5 Allergy status to narcotic agent; Z91.040 Latex allergy status
CPT/HCPCS: 71046; 71046-26; 87081; 87804; 87880-QW; 99283; 99283-25

== ENCOUNTER 2018-06-16 12:15 | Emergency (ER) | payer SELFPAY ==
[2018-06-16] MEDS ORDERED: Sodium Chloride 0.9% 1,000 ML IV ONE (12:56)
[2018-06-16] MEDS ORDERED: Ondansetron 4 MG/2 ML SDV IVPUSH ONE (12:56)
[2018-06-16] MEDS ORDERED: Ketorolac 30 MG/ML SDV IVPUSH ONE (12:56)
--- NOTE | 2018-06-16 13:00 | EDM.PDOC ---
ED HPI GENERAL MEDICAL PROBLEM - General Chief Complaint: Abdominal Pain Stated Complaint: STOMACH PAIN, LOOSE STOOL, VOMITING. Time Seen by Provider: 06/16/18 12:20 Source of Information: Reports: Patient History Limitations: Reports: No Limitations - History of Present Illness INITIAL COMMENTS - FREE TEXT/NARRATIVE: HISTORY AND PHYSICAL: History of present illness: Patient is a 32-year-old female who presents to the ED today with concern of vomiting, diarrhea, and right lower quadrant pain 5 days. Patient states the diarrhea occurs any time she eats. Patient states she hasn't been able to eat over the past several days and has only had small bites of food periodically. Patient states she has not been drinking appropriately either and feels dehydrated. Patient states she has not taken anything for her symptoms. Patient states she does have a hysterectomy but denies any other abdominal surgeries. Patient denies fever, chills, chest pain, shortness of breath, or cough. Denies headache, neck stiff ness, change in vision, syncope, or near syncope. Denies dysuria. Has not noted any blood in urine or stool. Patient denies any health history. Review of systems: As per history of present illness and below otherwise all systems reviewed and negative. Past medical history: As per history of present illness and as reviewed below otherwise noncontributory. Surgical history: As per history of present illness and as reviewed below otherwise noncontributory. Social history: See social history for further information Family history: As per history of present illness and as reviewed below otherwise noncontributory. Physical exam: General: Patient is alert, oriented, and in no acute distress. Patient sitting comfortably on exam table. HEENT: Atraumatic, normocephalic, pupils equal and reactive bilaterally, negative for conjunctival pallor or scleral icterus, mucous membranes dry, TMs normal bilaterally, throat clear, neck supple, nontender, trachea midline. No drooling or trismus noted. No meningeal signs. No hot potato voice noted. Lungs: Clear to auscultation, breath sounds equal bilaterally, chest nontender. Heart: S1S2, regular rate and rhythm without overt murmur Abdomen: Moderate pain to palpation of the right lower quadrant with guarding. Obese, Soft, nondistended.Negative for masses or hepatosplenomegaly. Negative for costovertebral tenderness. Pelvis: Stable nontender. Genitourinary: Deferred. Rectal: Deferred. Skin: Intact, warm, dry. No lesions or rashes noted. Extremities: Atraumatic, negative for cords or calf pain. Neurovascular unremarkable. Neuro: Awake, alert, oriented. Cranial nerves II through XII unremarkable. Cerebellum unremarkable. Motor and sensory unremarkable throughout. Exam nonfocal. Notes: Patient unable to leave a stool sample while in the ED today. Stool supplies of inflammatory for collection at home. Discussed the importance of follow-up with a primary care provider. Voices understanding and is agreeable to plan of care. Denies any further questions or concerns at this time. Diagnostics: CBC, CMP, lipase, UA, urine hCG, stool studies, cdiff, Ova and parasite, abdominal pelvic CT Therapeutics: Zofran, Toradol, saline Prescription: Zofran Impression: Dehydration Diarrhea, unspecified Abdominal pain, unspecified Plan: 1. You can alternate ibuprofen and Tylenol as directed for pain and discomfort. 2. Follow-up with your primary care provider as discussed. 3. Return to the ED as needed and as discussed. Definitive disposition and diagnosis as appropriate pending reevaluation and review of above. abdomen Pain Score (Numeric/FACES): 8 - Related Data Allergies Allergy/AdvReac Type Severity Reaction Status Date / Time hydrocodone bitartrate Allergy "anger Verified 06/16/18 12:45 [From Vicodin] rages" latex Allergy welts/reddn Verified 06/16/18 12:45 ess Home Meds: Home Meds . [No Known Home Meds] 04/14/18 [History] Past Medical History HEENT History: Reports: Other (See Below) Other HEENT History: wears contacts/glasses Cardiovascular History: Reports: None Respiratory History: Reports: Other (See Below) Other Respiratory History: hx of walking pneumonia last year Gastrointestinal History: Reports: None Genitourinary History: Reports: Acute Renal Failure WORK CHECKER History: Reports: Other WORK CHECKER History: ablation Musculoskeletal History: Reports: None Neurological History: Reports: None Psychiatric History: Reports: None Endocrine/Metabolic History: Reports: Obesity/BMI 30+ Hematologic History: Reports: None Other Hematologic History: states she bleeds easily Immunologic History: Reports: None Oncologic (Cancer) History: Reports: None Dermatologic History: Reports: None - Infectious Disease History Infectious Disease History: Reports: Chicken Pox, MRSA - Past Surgical History Head Surgeries/Procedures: Reports: None HEENT Surgical History: Reports: None Cardiovascular Surgical History: Reports: None Respiratory Surgical History: Reports: None GI Surgical History: Reports: None Female Surgical History: Reports: Breast Implant, Endometrial Ablation, Salpingo-Oophorectomy Other Female Surgeries/Procedures: hx breast augmentation, ESSURE, operative laparoscopy with rt salpingectomy, endometrial ablation Endocrine Surgical History: Reports: None Neurological Surgical History: Reports: None Musculoskeletal Surgical History: Reports: None Oncologic Surgical History: Reports: None Dermatological Surgical History: Reports: None Social & Family History - Family History Family Medical History: Noncontributory - Tobacco Use Smoking Status *Q: Never Smoker Second Hand Smoke Exposure: No - Caffeine Use Caffeine Use: Reports: None - Recreational Drug Use Recreational Drug Use: No ED ROS GENERAL - Review of Systems Review Of Systems: ROS reveals no pertinent complaints other than HPI. ED EXAM, GI/ABD - Physical Exam Exam: See Below (See dictation) Course - Vital Signs Last Recorded V/S: Last Vital Signs Temp 35.1 C L 06/16/18 12:42 Pulse 71 06/16/18 12:42 Resp 18 06/16/18 12:42 BP 149/86 H 06/16/18 12:42 Pulse Ox 97 06/16/18 12:42 - Orders/Labs/Meds Orders: Active Orders 24 hr Category Date Time Status CDIFF TOX A+B [OP] Stat Lab 06/16/18 12:58 Ordered CULTURE STOOL + CAMPY+SHIGATOX [RM] Stat Lab 06/16/18 12:58 Ordered OVA & PARASITES BY IMMUNOASSAY [MREF] Stat Lab 06/16/18 12:58 Ordered Isolation [COMM] Stat Oth 06/16/18 12:58 Ordered Labs: Laboratory Tests 06/16/18 06/16/18 06/16/18 Range/Units 13:01 13:01 13:12 WBC 4.24 (4.0-11.0) K/uL RBC 4.45 (4.30-5.90) M/uL Hgb 13.5 (12.0-16.0) g/dL Hct 39.3 (36.0-46.0) % MCV 88.3 (80.0-98.0) fL MCH 30.3 (27.0-32.0) pg MCHC 34.4 (31.0-37.0) g/dL RDW Std Deviation 43.2 (28.0-62.0) fl RDW Coeff of [place]elita 13 (11.0-15.0) % Plt Count 155 (150-400) K/uL MPV 9.50 (7.40-12.00) fL Neut % (Auto) 44.1 L (48.0-80.0) % Lymph % (Auto) 41.5 H (16.0-40.0) % Sierra % (Auto) 10.4 (0.0-15.0) % Eos % (Auto) 3.8 (0.0-7.0) % Baso % (Auto) 0.2 (0.0-1.5) % Neut # (Auto) 1.9 (1.4-5.7) K/uL Lymph # (Auto) 1.8 (0.6-2.4) K/uL Sierra # (Auto) 0.4 (0.0-0.8) K/uL Eos # (Auto) 0.2 (0.0-0.7) K/uL Baso # (Auto) 0.0 (0.0-0.1) K/uL Nucleated RBC % 0.0 /100WBC Nucleated RBCs # 0 K/uL Sodium (136-145) mmol/L Potassium (3.5-5.1) mmol/L Chloride (98-107) mmol/L Carbon Dioxide (21.0-32.0) mmol/L BUN (7.0-18.0) mg/dL Creatinine (0.6-1.0) mg/dL Est Cr Clr Drug Dosing mL/min Estimated GFR (MDRD) ml/min Glucose (74-106) mg/dL Calcium (8.5-10.1) mg/dL Total Bilirubin (0.2-1.0) mg/dL AST (15-37) IU/L ALT (14-63) IU/L Alkaline Phosphatase (46-116) U/L Total Protein (6.4-8.2) g/dL Albumin (3.4-5.0) g/dL Globulin (2.6-4.0) g/dL Albumin/Globulin Ratio (0.9-1.6) Lipase (73-393) U/L Urine Color YELLOW Urine Appearance SLT CLOUDY Urine pH 6.0 (5.0-8.0) Ur Specific [place] <= 1.005 (1.001-1.035) Urine Protein NEGATIVE (NEGATIVE) mg/dL Urine Glucose (UA) NEGATIVE (NEGATIVE) mg/dL Urine Ketones NEGATIVE (NEGATIVE) mg/dL Urine Occult Blood NEGATIVE (NEGATIVE) Urine Nitrite NEGATIVE (NEGATIVE) Urine Bilirubin NEGATIVE (NEGATIVE) Urine Urobilinogen 0.2 (<2.0) EU/dL Ur Leukocyte Esterase NEGATIVE (NEGATIVE) Urine HCG, Qual NEGATIVE (NEGATIVE) 06/16/18 Range/Units 13:12 WBC (4.0-11.0) K/uL RBC (4.30-5.90) M/uL Hgb (12.0-16.0) g/dL Hct (36.0-46.0) % MCV (80.0-98.0) fL MCH (27.0-32.0) pg MCHC (31.0-37.0) g/dL RDW Std Deviation (28.0-62.0) fl RDW Coeff of Carmelita (11.0-15.0) % Plt Count (150-400) K/uL MPV (7.40-12.00) fL Neut % (Auto) (48.0-80.0) % Lymph % (Auto) (16.0-40.0) % Sierra % (Auto) (0.0-15.0) % Eos % (Auto) (0.0-7.0) % Baso % (Auto) (0.0-1.5) % Neut # (Auto) (1.4-5.7) K/uL Lymph # (Auto) (0.6-2.4) K/uL Sierra # (Auto) (0.0-0.8) K/uL Eos # (Auto) (0.0-0.7) K/uL Baso # (Auto) (0.0-0.1) K/uL Nucleated RBC % /100WBC Nucleated RBCs # K/uL Sodium 140 (136-145) mmol/L Potassium 4.1 (3.5-5.1) mmol/L Chloride 104 (98-107) mmol/L Carbon Dioxide 27.1 (21.0-32.0) mmol/L BUN 9 (7.0-18.0) mg/dL Creatinine 0.8 (0.6-1.0) mg/dL Est Cr Clr Drug Dosing 74.77 mL/min Estimated GFR (MDRD) > 60.0 ml/min Glucose 91 (74-106) mg/dL Calcium 9.1 (8.5-10.1) mg/dL Total Bilirubin 0.5 (0.2-1.0) mg/dL AST 38 H (15-37) IU/L ALT 59 (14-63) IU/L Alkaline Phosphatase 41 L (46-116) U/L Total Protein 7.7 (6.4-8.2) g/dL Albumin 4.0 (3.4-5.0) g/dL Globulin 3.7 (2.6-4.0) g/dL Albumin/Globulin Ratio 1.1 (0.9-1.6) Lipase 119 (73-393) U/L Urine Color Urine Appearance Urine pH (5.0-8.0) Ur Specific [place] (1.001-1.035) Urine Protein (NEGATIVE) mg/dL Urine Glucose (UA) (NEGATIVE) mg/dL Urine Ketones (NEGATIVE) mg/dL Urine Occult Blood (NEGATIVE) Urine Nitrite (NEGATIVE) Urine Bilirubin (NEGATIVE) Urine Urobilinogen (<2.0) EU/dL Ur Leukocyte Esterase (NEGATIVE) Urine HCG, Qual (NEGATIVE) Meds: Medications Discontinued Medications Generic Name Dose Route Start Last Admin Trade Name Freq PRN Reason Stop Dose Admin Sodium Chloride 1,000 mls @ 999 mls/hr 06/16/18 12:56 06/16/18 13:08 Normal Saline IV 06/16/18 13:56 999 mls/hr BOLUS ONE Administration Ketorolac Tromethamine 30 mg 06/16/18 12:56 06/16/18 13:10 Toradol IVPUSH 06/16/18 12:57 30 mg ONETIME ONE Administration Ondansetron HCl 4 mg 06/16/18 12:56 06/16/18 13:09 Zofran IVPUSH 06/16/18 12:57 4 mg ONETIME ONE Administration Departure - Departure Time of Disposition: 15:38 Disposition: Home, Self-Care 01 Clinical Impression: Abdominal pain Qualifiers: Abdominal location: unspecified location Qualified Code(s): R10.9 - Unspecified abdominal pain Diarrhea Qualifiers: Diarrhea type: unspecified type Qualified Code(s): R19.7 - Diarrhea, unspecified - Discharge Information Referrals: PCP,Unknown [Primary Care Provider] - Forms: ED Department Discharge Additional Instructions: The following information is given to patients seen in the emergency department who are being discharged to home. This information is to outline your options for follow-up care. We provide all patients seen in our emergency department with a follow-up referral. The need for follow-up, as well as the timing and circumstances, are variable depending upon the specifics of your emergency department visit. If you don't have a primary care physician on staff, we will provide you with a referral. We always advise you to contact your personal physician following an emergency department visit to inform them of the circumstance of the visit and for follow-up with them and/or the need for any referrals to a consulting specialist. The emergency department will also refer you to a specialist when appropriate. This referral assures that you have the opportunity for follow-up care with a specialist. All of these measure are taken in an effort to provide you with optimal care, which includes your follow-up. Under all circumstances we always encourage you to contact your private physician who remains a resource for coordinating your care. When calling for follow-up care, please make the office aware that this follow-up is from your recent emergency room visit. If for any reason you are refused follow-up, please contact the [facility] Emergency Department at and asked to speak to the emergency department charge nurse. [facility] [address] [place] [address] [id number] [address] [id number] 1. You can alternate ibuprofen and Tylenol as directed for pain and discomfort. Take medication as prescribed. 2. Follow-up with your primary care provider as discussed. 3. Return to the ED as needed and as discussed. - My Orders Last 24 Hours: My Active Orders 06/16/18 12:58 CDIFF TOX A+B [OP] Stat CULTURE STOOL + CAMPY+SHIGATOX [RM] Stat OVA & PARASITES BY IMMUNOASSAY [MREF] Stat Isolation [COMM] Stat - Assessment/Plan Last 24 Hours: My Active Orders 06/16/18 12:58 CDIFF TOX A+B [OP] Stat CULTURE STOOL + CAMPY+SHIGATOX [RM] Stat OVA & PARASITES BY IMMUNOASSAY [MREF] Stat Isolation [COMM] Stat
[2018-06-16 13:47] LABS: CHLORIDE,CL 104 mmol/L (98-107); SODIUM,NA 140 mmol/L (136-145)
--- NOTE | 2018-06-16 15:34 | CT ---
INDICATION: Right-sided abdominal pain with diarrhea and vomiting after eating since Sunday. TECHNIQUE: CT of the abdomen and pelvis performed after IV injection of 100 mL of Isovue-370. FINDINGS: Bilateral breast implants. Tiny low-density focus in the mid liver anteriorly benign and may be a cyst. The spleen is mildly enlarged at 13.6 cm in AP dimension. Small cyst left upper kidney. Trace amount of fluid in the pelvis posteriorly. Hysterectomy. Increased number of tiny and small nonenlarged abdominal retroperitoneal lymph nodes. Peripherally enhancing low-density lesion in the left ovary measures 1.8 cm and may be a hemorrhagic cyst. Appendix is normal. Few small to mildly prominent reactive or inflammatory lymph nodes in the mesentery. Scarring anterior pelvic wall. Remainder negative. IMPRESSION: 1. Trace amount of free fluid in the pelvis posteriorly likely physiologic. 2. Uterus absent. 3. Peripherally enhancing 1.8 cm lesion in the left ovary likely a hemorrhagic cyst. 4. Mild splenomegaly. Other findings as above. Please note that all CT scans at this facility use dose modulation, iterative reconstruction, and/or weight-based dosing when appropriate to reduce radiation dose to as low as reasonably achievable. Dictated by Julio Oneal MD @ Jun 16 2018 3:31PM Signed by Dr. Julio Oneal @ Jun 16 2018 3:32PM
[2018-06-16 16:25] VITALS: BP 127/86
[2018-06-16] MEDS ORDERED: Iopamidol 755 MG/ML 500 ML Multipack Bottle IVPUSH STA (17:18)
== END 2018-06-16 16:26 | disposition home or self-care (01) ==
LOC: MW.ED 12:15
DX: E86.0 Dehydration (principal); R19.7 Diarrhea, unspecified; R10.9 Unspecified abdominal pain; Z88.6 Allergy status to analgesic agent; Z91.040 Latex allergy status
CPT/HCPCS: 36415; 74177; 80053; 81003; 81025; 83690; 85025; 96361; 96374; 96375; 99284; J1885; J2405; J7040; Q9967